=== PATIENT | female | born 1970 | race Caucasian/White ===

== ENCOUNTER → 2016-05-18 | Outpatient (CLI) | payer OTHER | LOC: MC.RAD 12:55 | DX: Z12.31 Encounter for screening mammogram for malignant neoplasm of breast (principal); R92.8 Other abnormal and inconclusive findings on diagnostic imaging of breast ==

== ENCOUNTER → 2016-05-25 | Outpatient (CLI) | payer OTHER | LOC: MC.RAD 12:55 | DX: R92.8 Other abnormal and inconclusive findings on diagnostic imaging of breast (principal) ==

== ENCOUNTER → 2016-12-13 | Outpatient (CLI) | payer BC | LOC: MC.RAD 07:29 | DX: R92.2 Inconclusive mammogram (principal) ==

== ENCOUNTER → 2017-09-30 | Outpatient (CLI) | payer BC | LOC: MC.RAD 09-06 13:40 | DX: Z12.31 Encounter for screening mammogram for malignant neoplasm of breast (principal) ==

== ENCOUNTER → 2020-03-04 | Outpatient (CLI) | payer BC | LOC: MC.RAD 07:28 | DX: Z12.31 Encounter for screening mammogram for malignant neoplasm of breast (principal) ==

== ENCOUNTER → 2021-04-06 | Outpatient (CLI) | payer BC | LOC: MC.RAD 12:56 | DX: Z12.31 Encounter for screening mammogram for malignant neoplasm of breast (principal) ==

== ENCOUNTER → 2022-04-27 | Outpatient (CLI) | payer BC | LOC: MC.RAD 12:58 | DX: Z12.31 Encounter for screening mammogram for malignant neoplasm of breast (principal) ==

== ENCOUNTER → 2023-04-28 | Outpatient (CLI) | payer BC | LOC: MC.RAD 06:49 | DX: Z12.31 Encounter for screening mammogram for malignant neoplasm of breast (principal) ==